=== PATIENT | female | born 1980 | race American Indian/Alaskan Native ===

== ENCOUNTER 2018-04-13 17:13 | Emergency (ER) | payer MEDICAID ==
[2018-04-13 17:39] VITALS: BP 142/68
[2018-04-13 18:52] LABS: Hematocrit 37.3 % (30.3-42.9); Hemoglobin 12.6 gm/dl (10.1-14.3); Mean Corpuscular HGB Conc 34 % (30-34); Mean Corpuscular Hemoglobin 31 pg (28-32); Mean Corpuscular Volume 93 fl (79-97); Platelet Count 259 K/mm3 (140-440); Red Blood Count 4.01 M/mm3 (3.65-5.03); Red Cell Distribution Width 14.8 % (13.2-15.2)
[2018-04-13 19:02] LABS: INR 0.98 (0.87-1.13)
[2018-04-13 19:03] LABS: Partial Thromboplastin Time 34.6 Sec. (24.2-36.6)
[2018-04-13] MEDS ORDERED: TYLENOL PO ONE (22:40)
--- NOTE | 2018-04-13 22:43 | Emergency Department Report ---
ED Extremity Problem HPI - General Chief complaint: Extremity Problem,Nontraumatic Stated complaint: SWELLING L ANKLE Time Seen by Provider: 04/13/18 21:54 Source: patient Mode of arrival: Ambulatory Limitations: No Limitations - History of Present Illness Initial comments: 38-year-old female was sent here by her primary care provider for left leg swelling and Pain. Patient denies any recent trauma. She does report a history of arthritis. Patient does admit to sitting down a lot while at work. As well as recent travel for 8 hour trip and turned back around in another 8 hours. He denies any chest pain, shortness of breathing, back pain as well as fever. MD Complaint: extremity pain, extremity swelling -: days(s) (2) Location: left, lower extremity History of Same: No -: Yes myalgia, Yes arthralgia Severity scale (0 -10): 7 Quality: aching, sharp Consistency: constant Improves with: elevation, rest Worsens with: weight bearing, walking Associated Symptoms: denies other symptoms - Related Data Home Medications Medication Instructions Recorded Confirmed Last Taken Ferrous Sulfate 03/15/16 Unknown Previous Rx's Medication Instructions Recorded Last Taken Type traMADol [Ultram] 50 mg PO Q6HR PRN #15 tablet 08/22/15 Unknown Rx Ibuprofen [Motrin] 800 mg PO Q8HR PRN #20 tablet 03/15/16 Unknown Rx traMADol [Ultram 50 MG tab] 50 mg PO Q6HR PRN #20 tablet 04/13/18 Unknown Rx Allergies Allergy/AdvReac Type Severity Reaction Status Date / Time No Known Allergies Allergy Verified 08/22/15 10:40 ED Review of Systems ROS: Stated complaint: SWELLING L ANKLE Other details as noted in HPI Constitutional: denies: chills, fever Eyes: denies: eye pain, eye discharge, vision change ENT: denies: ear pain, throat pain Respiratory: denies: cough, shortness of breath, wheezing Cardiovascular: denies: chest pain, palpitations Endocrine: no symptoms reported Gastrointestinal: denies: abdominal pain, nausea, diarrhea Genitourinary: denies: urgency, dysuria, discharge Musculoskeletal: joint swelling (left lower leg no joint involvement), arthralgia (left lower leg, ). denies: back pain Skin: denies: rash, lesions Neurological: denies: headache, weakness, paresthesias Psychiatric: denies: anxiety, depression Hematological/Lymphatic: denies: easy bleeding, easy bruising ED Past Medical Hx - Past Medical History Previous Medical History?: Yes Hx Arthritis: Yes Additional medical history: left arm pain and injury - Surgical History Past Surgical History?: Yes Hx Cholecystectomy: Yes Additional Surgical History: Tubal ligation. X 2 - Social History Smoking Status: Never Smoker Substance Use Type: None - Medications Home Medications: Home Medications Medication Instructions Recorded Confirmed Last Taken Type traMADol [Ultram] 50 mg PO Q6HR PRN #15 tablet 08/22/15 Unknown Rx Ferrous Sulfate 03/15/16 Unknown History Ibuprofen [Motrin] 800 mg PO Q8HR PRN #20 tablet 03/15/16 Unknown Rx traMADol [Ultram 50 MG tab] 50 mg PO Q6HR PRN #20 tablet 04/13/18 Unknown Rx ED Physical Exam - General Limitations: No Limitations General appearance: alert, in no apparent distress - Head Head exam: Present: atraumatic, normocephalic - Eye Eye exam: Present: normal appearance - Respiratory Respiratory exam: Present: normal lung sounds bilaterally. Absent: respiratory distress - Cardiovascular Cardiovascular Exam: Present: regular rate, normal rhythm. Absent: systolic murmur, diastolic murmur, rubs, gallop - GI/Abdominal GI/Abdominal exam: Present: soft, normal bowel sounds - Expanded Lower Extremity Exam Left Lower Leg exam: Present: full ROM, tenderness, swelling. Absent: erythema Ankle exam: Present: tenderness, swelling Foot/Toe exam: Present: normal inspection, full ROM Neuro vascular tendon exam: Present: no vascular compromise. Absent: pulse deficit, abnormal cap refill Gait: Positive: observed and limited by pain - Neurological Exam Neurological exam: Present: alert, oriented X3 - Psychiatric Psychiatric exam: Present: normal affect, normal mood - Skin Skin exam: Present: warm, dry, intact, normal color. Absent: rash ED Course Vital Signs 04/13/18 17:37 Temperature 98 F Pulse Rate 102 H Respiratory 16 Rate Blood Pressure 142/68 O2 Sat by Pulse 100 Oximetry ED Medical Decision Making - Lab Data Result diagrams: 04/13/18 18:21 - Radiology Data Vascular lab plan number report. Left lower extremity venous Doppler done. No evidence of DVT/SVT in vessels visualized. - Medical Decision Making Patient's been evaluated by this provider fast track. Basic labs were done with a d-dimer that showed some elevation. Also venous Doppler was completed and shows no evidence of DVT or SVT in vessels visualized. Discussed the patient that she needs to get up every 2 hours to walk T stretches of her legs follow up with her primary care provider. I will prescribe her tramadol for pain since she reports ibuprofen has caused in the past acute kidney injury. Critical care attestation.: If time is entered above; I have spent that time in minutes in the direct care of this critically ill patient, excluding procedure time. ED Disposition Clinical Impression: Pain and swelling of left lower extremity Disposition: - TO HOME OR SELFCARE Is pt being admited?: No Does the pt Need Aspirin: No Condition: Stable Additional Instructions: Please take pain medication as prescribed. Please get up every 2-3 hours to walk. Please follow up with her primary care provider in the next 2-3 days for follow-up. If symptoms persist or gets worse please follow-up in the emergency room. Prescriptions: traMADol [Ultram 50 MG tab] 50 mg PO Q6HR PRN #20 tablet PRN Reason: Pain Referrals: PRIMARY CARE,MD [Primary Care Provider] - 3-5 Days your,provider [Other] - 3-5 Days NO BUTTS DO [Referring] - 3-5 Days Forms: Work/School Release Form(ED), Accompanied Note
== END 2018-04-13 22:50 | disposition home or self-care (01) ==
LOC: ED 17:13
DX: R22.42 Localized swelling, mass and lump, left lower limb (principal); M79.662 Pain in left lower leg; M19.90 Unspecified osteoarthritis, unspecified site; Z90.49 Acquired absence of other specified parts of digestive tract; Z98.51 Tubal ligation status
CPT/HCPCS: 36415; 85027; 85379; 85610; 85730

== ENCOUNTER 2018-06-23 17:49 | Emergency (ER) | payer SELFPAY ==
[2018-06-23 18:02] VITALS: BP 125/83
[2018-06-23] MEDS ORDERED: ULTRAM PO ONE (21:36)
--- NOTE | 2018-06-23 21:41 | Emergency Department Report ---
ED General Adult HPI - General Chief complaint: Sore Throat Stated complaint: SHORTNESS OF BREATH Time Seen by Provider: 06/23/18 21:23 Source: patient Mode of arrival: Ambulatory Limitations: No Limitations - History of Present Illness Initial comments: 38-year-old -[place] female comes in complaining of bodyaches sore throat difficulty swallowing and left ear pain. Patient reports that this is been going on since last Wednesday. The ear pain started today. Patient has taken nothing for the pain. She has not contacted her primary care provider. 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 She also reports that she has elevated protein in the urine so she is not taking any ibuprofen. Patient currently is taking methotrexate and steroids. -: week(s) (1) Quality: aching Consistency: constant Improves with: rest Worsens with: other (swallowing) Treatments Prior to Arrival: none - Related Data Home Medications Medication Instructions Recorded Confirmed Last Taken Ferrous Sulfate 03/15/16 Unknown Previous Rx's Medication Instructions Recorded Last Taken Type traMADol [Ultram] 50 mg PO Q6HR PRN #15 tablet 08/22/15 Unknown Rx Ibuprofen [Motrin] 800 mg PO Q8HR PRN #20 tablet 03/15/16 Unknown Rx traMADol [Ultram 50 MG tab] 50 mg PO Q6HR PRN #20 tablet 04/13/18 Unknown Rx Amoxicillin/K Clav Tab [Augmentin 1 tab PO Q12HR #20 tab 06/23/18 Unknown Rx 875 mg] traMADol [Ultram 50 MG tab] 50 mg PO Q6HR PRN #12 tablet 06/23/18 Unknown Rx Allergies Allergy/AdvReac Type Severity Reaction Status Date / Time No Known Allergies Allergy Verified 08/22/15 10:40 ED Review of Systems ROS: Stated complaint: SHORTNESS OF BREATH Other details as noted in HPI ENT: ear pain, throat pain Musculoskeletal: myalgia ED Past Medical Hx - Past Medical History Hx Arthritis: Yes Additional medical history: left arm pain and injury - Surgical History Hx Cholecystectomy: Yes Additional Surgical History: Tubal ligation. X 2 - Social History Smoking Status: Never Smoker Substance Use Type: None - Medications Home Medications: Home Medications Medication Instructions Recorded Confirmed Last Taken Type traMADol [Ultram] 50 mg PO Q6HR PRN #15 tablet 08/22/15 Unknown Rx Ferrous Sulfate 03/15/16 Unknown History Ibuprofen [Motrin] 800 mg PO Q8HR PRN #20 tablet 03/15/16 Unknown Rx traMADol [Ultram 50 MG tab] 50 mg PO Q6HR PRN #20 tablet 04/13/18 Unknown Rx Amoxicillin/K Clav Tab [Augmentin 1 tab PO Q12HR #20 tab 06/23/18 Unknown Rx 875 mg] traMADol [Ultram 50 MG tab] 50 mg PO Q6HR PRN #12 tablet 06/23/18 Unknown Rx ED Physical Exam - General Limitations: No Limitations General appearance: alert, in no apparent distress - Head Head exam: Present: atraumatic, normocephalic - Eye Eye exam: Present: EOMI - ENT ENT exam: Present: mucous membranes moist - Expanded ENT Exam Expanded TM/Canal exam: Effusion: Left TM, Loss of Landmarks: Left TM Throat exam: Positive: tonsillar erythema, tonsillomegaly. Negative: tonsillar exudate - Neck Neck exam: Present: full ROM, lymphadenopathy. Absent: tenderness - Respiratory Respiratory exam: Present: normal lung sounds bilaterally. Absent: respiratory distress - Cardiovascular Cardiovascular Exam: Present: tachycardia - GI/Abdominal GI/Abdominal exam: Present: soft, normal bowel sounds ED Course Vital Signs 06/23/18 06/23/18 17:55 21:26 Temperature 98.0 F Pulse Rate 115 H 101 H Respiratory 18 Rate Blood Pressure 125/83 O2 Sat by Pulse 100 99 Oximetry ED Medical Decision Making - Medical Decision Making Patient has been evaluated by this provider fast track. Tramadol given for pain management. We'll discharge patient home with Augmentin 875 mg twice a day for 10 days. Referral to her nose and throat. Pain medicine Tylenol No. 3. Critical care attestation.: If time is entered above; I have spent that time in minutes in the direct care of this critically ill patient, excluding procedure time. ED Disposition Clinical Impression: Sore throat, Generalized body aches Otitis media Qualifiers: Otitis media type: suppurative Chronicity: acute Laterality: left Recurrence: not specified as recurrent Spontaneous tympanic membrane rupture: without spontaneous rupture Qualified Code(s): H66.002 - Acute suppurative otitis media without spontaneous rupture of ear drum, left ear Disposition: - TO HOME OR SELFCARE Is pt being admited?: No Does the pt Need Aspirin: No Condition: Stable Instructions: Otitis Media (ED), Pharyngitis (ED) Additional Instructions: Please complete antibiotics as prescribed. Pain medication as needed. Follow-up with her primary care provider and ear nose and throat doctor. Prescriptions: Amoxicillin/K Clav Tab [Augmentin 875 mg] 1 tab PO Q12HR #20 tab traMADol [Ultram 50 MG tab] 50 mg PO Q6HR PRN #12 tablet PRN Reason: Pain Referrals: PRIMARY CARE, [Primary Care Provider] - 3-5 Days ENT [facility] [Provider Group] - 3-5 Days Forms: Work/School Release Form(ED)
== END 2018-06-23 21:53 | disposition home or self-care (01) ==
LOC: ED 17:49
DX: M79.1 Myalgia (principal); J02.9 Acute pharyngitis, unspecified; H66.002 Acute suppurative otitis media without spontaneous rupture of ear drum, left ear; M19.90 Unspecified osteoarthritis, unspecified site; Z98.51 Tubal ligation status; Z90.89 Acquired absence of other organs
CPT/HCPCS: 87116; 87430; 99283

== ENCOUNTER 2019-01-04 17:58 | Emergency (ER) | payer OTHER ==
[2019-01-04 20:30] VITALS: BP 127/75
[2019-01-04] MEDS ORDERED: TYLENOL PO ONE (20:50)
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
== END 2019-01-04 21:39 | disposition home or self-care (01) ==
LOC: ED 17:58
DX: S39.012A Strain of muscle, fascia and tendon of lower back, initial encounter (principal); V49.49XA Driver injured in collision with other motor vehicles in traffic accident, initial encounter; Y93.89 Activity, other specified; Y92.488 Other paved roadways as the place of occurrence of the external cause; Y99.8 Other external cause status
CPT/HCPCS: 99282